=== PATIENT | female | born 1975 | race Caucasian/White ===

== ENCOUNTER 2016-11-08 09:09 | Emergency (ER) | payer OTHER ==
[2016-11-08 10:25] VITALS: BP 158/99
== END 2016-11-08 10:25 | disposition home or self-care (01) ==
LOC: ED 09:09
DX: S01.81XA Laceration without foreign body of other part of head, initial encounter (principal); X58.XXXA Exposure to other specified factors, initial encounter; Y93.89 Activity, other specified; Y99.8 Other external cause status; Y92.89 Other specified places as the place of occurrence of the external cause
CPT/HCPCS: 90715